=== PATIENT | female | born 2000 | race African-American/Black ===

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

== ENCOUNTER 2023-02-16 17:29 | Inpatient (IN) ==
[2023-02-16] MEDS ORDERED: cefTRIAXone 2 gm/50 mL D5W 2 GM/50 ML BAG IV ONE (18:17)
[2023-02-16] MEDS ORDERED: methylPREDNISolone SOD SUCC 125 mg 2 ML VIAL IV ONE (18:33)
[2023-02-16 18:58] LABS: ABS Basophils 0.1 10^3/uL (0.0-0.1); ABS Eosinophils 0.1 10^3/uL (0.0-0.5); ABS Lymphocytes 2.7 10^3/uL (1.0-4.8); ABS Monocytes 0.6 10^3/uL (0.0-0.9); ABS Neutrophils 4.3 10^3/uL (1.5-7.6); ABS Nucleated RBC 0.01 10^3/ul; Eosinophil % 0.8 %; Hematocrit 37.8 % (35-45); Hemoglobin 12.8 g/dL (11.5-14.3); Lymphocyte % 35.1 %; Mean Corpuscular Hemoglobin 30.7 pg (27-33); Mean Corpuscular Hgb Conc 33.8 g/dL (31-36); Mean Corpuscular Volume 90.9 fL (80-97); Mean Platelet Volume 8.1 fL (7.5-11.2); Nucleated Red Blood Cells % 0.1 %/100WBC (0.0-0.8); Platelet Count 305 10^3/uL (150-450); Red Blood Count 4.16 10^6/uL (3.63-4.92); Red Cell Distribution Width 12.9 % (12-17); White Blood Count 7.7 10^3/uL (3.8-11.8)
[2023-02-16] MEDS ORDERED: Ondansetron 4 mg VIAL 2 MG/ML 2 ml VIAL IV ONE (19:14)
[2023-02-16 19:26] LABS: ALT 16 U/L (7-52); AST 20 U/L (13-39); Albumin 4.2 g/dL (3.2-5.2); Albumin/Globulin Ratio 1.1 (1-3); Alkaline Phosphatase 62 U/L (35-149); Anion Gap 9 mmol/L (2-16); Blood Urea Nitrogen 11 mg/dL (6-24); CO2 Carbon Dioxide 24 mmol/L (22-32); Calcium 9.4 mg/dL (8.6-10.3); Chloride 104 mmol/L (101-111); Creatinine, Serum 0.67 mg/dL (0.51-0.95); Globulin 3.8 g/dL (2-4); Glucose 86 mg/dL (70-100); Potassium 3.4 mmol/L (3.5-5.0); Sodium 137 mmol/L (135-145); Total Bilirubin 0.6 mg/dL (0.2-1.0); eGFR CKD-EPI 125.1 (>60)
[2023-02-16] MEDS ORDERED: Acetaminophen IV 1 GM/100ML 1,000 MG/100 ML BAG IV ONE (19:30)
[2023-02-16] MEDS ORDERED: Ondansetron 4 mg VIAL 2 MG/ML 2 ml VIAL IV PRN (20:59)
[2023-02-16 21:50] LABS: HCG Pregnancy < 0.60 mIU/mL
[2023-02-17 04:54] LABS: ABS Lymphocytes 0.6 10^3/uL (1.0-4.8); ABS Monocytes 0.1 10^3/uL (0.0-0.9); ABS Neutrophils 6.2 10^3/uL (1.5-7.6); Hematocrit 37.5 % (35-45); Hemoglobin 12.4 g/dL (11.5-14.3); Lymphocyte % 8.6 %; Mean Corpuscular Hemoglobin 30.3 pg (27-33); Mean Corpuscular Hgb Conc 33.1 g/dL (31-36); Mean Corpuscular Volume 91.3 fL (80-97); Mean Platelet Volume 8.3 fL (7.5-11.2); Platelet Count 299 10^3/uL (150-450); Red Blood Count 4.11 10^6/uL (3.63-4.92); Red Cell Distribution Width 12.6 % (12-17); White Blood Count 6.9 10^3/uL (3.8-11.8)
[2023-02-17 05:18] LABS: Calcium 9.1 mg/dL (8.6-10.3); Creatinine, Serum 0.62 mg/dL (0.51-0.95); Magnesium 1.8 mg/dL (1.9-2.7); Potassium 4.3 mmol/L (3.5-5.0); eGFR CKD-EPI 127.5 (>60)
[2023-02-17 05:41] LABS: TSH Ultra Thyroid Stim Horm 0.25 mcIU/mL (0.34-5.60)
[2023-02-17] MEDS: cefTRIAXone 2 gm/50 mL D5W 2 GM/50 ML BAG IV SCH ×3 (06:37→18:33)
[2023-02-17] MEDS: Acetaminophen IV 1 GM/100ML 1,000 MG/100 ML BAG IV PRN (08:45)
[2023-02-17] MEDS: Magnesium Sulfate IV 1GM/100ML 1 GM/100 ML BAG IV ONE ×2 (08:46→09:56)
[2023-02-17 14:04] LABS: HIV 4th Generation Nonreactive (Nonreactive)
[2023-02-17 15:27] LABS: Body Fluid Source Cerebral Spinal
[2023-02-17 15:52] LABS: CSF Glucose 80 mg/dL (40-70)
[2023-02-17 15:58] LABS: CSF Tube # 4
[2023-02-17 16:06] LABS: CSF Body Fluid WBC 0 /mcL
[2023-02-17 17:08] LABS: Body Fluid Mono 10 %; Body Fluid Total Cells Counted 21
[2023-02-17 17:10] LABS: Body Fluid Appearance Clear
[2023-02-17 17:11] LABS: Body Fluid Color Colorless
[2023-02-17] MEDS ORDERED: Gadoteridol (CONTRAST) 279.3 MG/ML 10 ML IV ONE (22:28)
[2023-02-18] MEDS: cefTRIAXone 2 gm/50 mL D5W 2 GM/50 ML BAG IV SCH (05:08)
[2023-02-18 06:05] LABS: ABS Eosinophils 0.1 10^3/uL (0.0-0.5); ABS Lymphocytes 3.5 10^3/uL (1.0-4.8); ABS Monocytes 0.8 10^3/uL (0.0-0.9); ABS Neutrophils 4.9 10^3/uL (1.5-7.6); ABS Nucleated RBC 0.01 10^3/ul; Eosinophil % 0.9 %; Hematocrit 35.9 % (35-45); Hemoglobin 11.9 g/dL (11.5-14.3); Lymphocyte % 37.5 %; Mean Corpuscular Hemoglobin 30.2 pg (27-33); Mean Corpuscular Hgb Conc 33.1 g/dL (31-36); Mean Corpuscular Volume 91.2 fL (80-97); Mean Platelet Volume 8.5 fL (7.5-11.2); Nucleated Red Blood Cells % 0.1 %/100WBC (0.0-0.8); Platelet Count 286 10^3/uL (150-450); Red Blood Count 3.94 10^6/uL (3.63-4.92); Red Cell Distribution Width 12.8 % (12-17); White Blood Count 9.3 10^3/uL (3.8-11.8)
[2023-02-18 06:37] LABS: Calcium 8.8 mg/dL (8.6-10.3); Creatinine, Serum 0.71 mg/dL (0.51-0.95); Magnesium 1.9 mg/dL (1.9-2.7); Potassium 3.5 mmol/L (3.5-5.0); eGFR CKD-EPI 121.7 (>60)
[2023-02-18] MEDS ORDERED: Morphine 2 MG/ML SYRINGE IV PRN (07:54)
[2023-02-18] MEDS ORDERED: Influenza vaccine *QUAD* *2023-24* 0.5 ML SYRINGE IM ONE (09:00)
[2023-02-18 10:22] LABS: High Sensitivity Troponin 1 Hr 8 pg/mL (<15)
[2023-02-18] MEDS ORDERED: Immune Globulin IV Order (CPOE ENTRY PROTOCOL) IV SCH (12:00)
[2023-02-18] MEDS ORDERED: Rocuronium 50 mg VIAL 10 mg/ml 5 ml VIAL (50 mg) ONE (13:06)
[2023-02-18] MEDS ORDERED: Succinylcholine 200 mg VIAL 20 mg/ml 10 ml VIAL (200 mg) ONE (13:06)
[2023-02-18] MEDS ORDERED: Propofol 10 mg/ml 100 ML BTL 1,000 MG/100 ML BTL ONE (13:37)
[2023-02-18] MEDS ORDERED: Lactated Ringers 1000 ml BAG 500 ML IV ONE (14:02)
[2023-02-18] MEDS ORDERED: Albuterol/Ipratropium NEB.SOL (2.5/0.5 MG) 3 ML NEB.SOLN ONE (14:03)
[2023-02-18] MEDS ORDERED: Albuterol/Ipratropium NEB.SOL (2.5/0.5 MG) 3 ML NEB.SOLN INH ONE (14:09)
[2023-02-18] MEDS ORDERED: Albuterol/Ipratropium NEB.SOL (2.5/0.5 MG) 3 ML NEB.SOLN INH PRN (14:37)
[2023-02-18] MEDS ORDERED: Midazolam 10 mg/10 ml VIAL 1 mg/ml 10 ml VIAL (10 mg) ONE ×2 (14:40→15:20)
[2023-02-18] MEDS: Propofol 10 mg/ml 100 ML BTL 1,000 MG/100 ML BTL IV SCH ×3 (14:43→23:51)
[2023-02-18] MEDS ORDERED: Midazolam 10 mg/10 ml VIAL 1 mg/ml 10 ml VIAL (10 mg) IV SLOW PU ONE (14:52)
[2023-02-18] MEDS ORDERED: Midazolam PREMIXBAG 1 MG/ML NS 100 ML IV ONE (14:52)
[2023-02-18] MEDS ORDERED: Midazolam 5 mg/5 ml VIAL 1 mg/ml 5 ml VIAL (5 mg) IV SLOW PU ONE (14:53)
[2023-02-18] MEDS: Immune Glob 10%-20GM GAMMAGLIQ 20 GM, Immune Glob 10%-5 GM GAMMAGLIQ 5 GM in Premix IV ... IV SCH (14:59)
[2023-02-18] MEDS: fentaNYL INFUSION 50 mcg/mL VL 2,500 MCG/50 ML VIAL IV SCH (15:38)
[2023-02-18] MEDS: Chlorhexidine MOUTHWASH 0.12% 15 ML UDC SWISH SPIT SCH ×4 (15:44→23:52)
[2023-02-18] MEDS: Midazolam PREMIXBAG 1 MG/ML NS 100 ML IV SCH ×2 (15:46→22:41)
[2023-02-18] MEDS: Pantoprazole VIAL 40 MG VIAL IV SCH (15:52)
[2023-02-18] MEDS: Enoxaparin 40 MG/0.4 ML SYR SUBCUT SCH (15:53)
[2023-02-18 16:33] LABS: Urine Benzodiazepine Screen Presumptive Positive (None Detect); Urine Buprenorphine Screen None Detected (None Detect); Urine Cannabinoids Screen Presumptive Positive (None Detect); Urine Fentanyl Screen Presumptive Positive (None Detect); Urine Hydrocodone Screen None Detected (None Detect); Urine Opiates Screen Presumptive Positive (None Detect)
[2023-02-18] MEDS: cefTRIAXone 1 gm/50 mL D5W 1 GM/50 ML BAG IV SCH (18:11)
[2023-02-18] MEDS ORDERED: Iohexol 300 (CONTRAST) 10 ML SDV IV ONE (19:04)
[2023-02-19] MEDS ORDERED: Gadoteridol (CONTRAST) 279.3 MG/ML 10 ML IV ONE (00:48)
[2023-02-19] MEDS: Chlorhexidine MOUTHWASH 0.12% 15 ML UDC SWISH SPIT SCH ×6 (02:01→20:50)
[2023-02-19] MEDS: fentaNYL INFUSION 50 mcg/mL VL 2,500 MCG/50 ML VIAL IV SCH (04:50)
[2023-02-19 04:51] LABS: ABS Eosinophils 0.1 10^3/uL (0.0-0.5); ABS Lymphocytes 1.5 10^3/uL (1.0-4.8); ABS Monocytes 0.6 10^3/uL (0.0-0.9); ABS Neutrophils 4.5 10^3/uL (1.5-7.6); ABS Nucleated RBC 0.01 10^3/ul; Eosinophil % 0.9 %; Hemoglobin 11.4 g/dL (11.5-14.3); Lymphocyte % 21.9 %; Mean Corpuscular Hemoglobin 30.9 pg (27-33); Mean Corpuscular Hgb Conc 33.6 g/dL (31-36); Mean Corpuscular Volume 91.8 fL (80-97); Nucleated Red Blood Cells % 0.1 %/100WBC (0.0-0.8); Platelet Count 257 10^3/uL (150-450); Red Cell Distribution Width 12.5 % (12-17); White Blood Count 6.7 10^3/uL (3.8-11.8)
[2023-02-19 05:09] LABS: Calcium 8.7 mg/dL (8.6-10.3); Creatinine, Serum 0.63 mg/dL (0.51-0.95); Magnesium 1.8 mg/dL (1.9-2.7); Phosphorus 4.5 mg/dL (2.5-5.0); Potassium 3.6 mmol/L (3.5-5.0)
[2023-02-19] MEDS ORDERED: Potassium Chloride LIQUID 20 MEQ/15 ML LIQUID PO ONE (06:37)
[2023-02-19] MEDS ORDERED: Magnesium Sulfate 2 gm BAG 2 GM/50 ML BAG IVPB ONE (06:37)
[2023-02-19] MEDS: Propofol 10 mg/ml 100 ML BTL 1,000 MG/100 ML BTL IV SCH ×4 (06:39→19:40)
[2023-02-19] MEDS: Midazolam PREMIXBAG 1 MG/ML NS 100 ML IV SCH (08:19)
[2023-02-19] MEDS: Immune Glob 10%-20GM GAMMAGLIQ 20 GM, Immune Glob 10%-5 GM GAMMAGLIQ 5 GM in Premix IV ... IV SCH (10:23)
[2023-02-19 14:01] LABS: Folate 11.19 ng/mL (5.90-24.80)
[2023-02-19] MEDS: Enoxaparin 40 MG/0.4 ML SYR SUBCUT SCH (14:43)
[2023-02-19] MEDS: Pantoprazole VIAL 40 MG VIAL IV SCH (14:43)
[2023-02-19] MEDS: cefTRIAXone 1 gm/50 mL D5W 1 GM/50 ML BAG IV SCH (17:36)
[2023-02-19] MEDS ORDERED: Ibuprofen ADULT LIQ 600 MG/30 ML UDC PO PRN (20:58)
[2023-02-19] MEDS: Acetaminophen IV 1 GM/100ML 1,000 MG/100 ML BAG IV PRN (21:26)
[2023-02-19 21:44] LABS: HSV 1 PCR, CSF Negative (Negative); HSV 2 PCR, CSF Negative (Negative)
[2023-02-20] MEDS: Chlorhexidine MOUTHWASH 0.12% 15 ML UDC SWISH SPIT SCH ×6 (01:00→20:24)
[2023-02-20] MEDS: Propofol 10 mg/ml 100 ML BTL 1,000 MG/100 ML BTL IV SCH ×4 (02:08→22:42)
[2023-02-20] MEDS: Midazolam PREMIXBAG 1 MG/ML NS 100 ML IV SCH (04:01)
[2023-02-20 04:53] LABS: ABS Eosinophils 0.1 10^3/uL (0.0-0.5); ABS Lymphocytes 1.6 10^3/uL (1.0-4.8); ABS Monocytes 0.7 10^3/uL (0.0-0.9); ABS Neutrophils 3.2 10^3/uL (1.5-7.6); ABS Nucleated RBC 0.02 10^3/ul; Eosinophil % 1.4 %; Hematocrit 33.5 % (35-45); Hemoglobin 11.2 g/dL (11.5-14.3); Mean Corpuscular Hemoglobin 30.7 pg (27-33); Mean Corpuscular Hgb Conc 33.4 g/dL (31-36); Mean Corpuscular Volume 91.9 fL (80-97); Mean Platelet Volume 8.4 fL (7.5-11.2); Nucleated Red Blood Cells % 0.4 %/100WBC (0.0-0.8); Platelet Count 257 10^3/uL (150-450); Red Blood Count 3.64 10^6/uL (3.63-4.92); Red Cell Distribution Width 12.6 % (12-17); White Blood Count 5.6 10^3/uL (3.8-11.8)
[2023-02-20 05:09] LABS: Calcium 8.9 mg/dL (8.6-10.3); Creatinine, Serum 0.62 mg/dL (0.51-0.95); Magnesium 2.2 mg/dL (1.9-2.7); Phosphorus 4.3 mg/dL (2.5-5.0); eGFR CKD-EPI 127.5 (>60)
[2023-02-20] MEDS: Immune Glob 10%-20GM GAMMAGLIQ 20 GM, Immune Glob 10%-5 GM GAMMAGLIQ 5 GM in Premix IV ... IV SCH (09:54)
[2023-02-20] MEDS ORDERED: Magnesium Hydroxide LIQ 30 ML UDC PO PRN (09:58)
[2023-02-20] MEDS ORDERED: Polyethylene Glycol 3350 17 GM PACKET PO SCH (10:00)
[2023-02-20] MEDS ORDERED: Magnesium Hydroxide LIQ 30 ML UDC PO SCH (10:00)
[2023-02-20 11:32] LABS: Free T4 0.86 ng/dL (0.61-1.12)
[2023-02-20 12:00] LABS: Albumin, CSF 22.7 mg/dL (<=27.0); Albumin, S 4000 mg/dL; IgG Index, CSF 0.62 (<=0.85); IgG, CSF 5.8 mg/dL (<=8.1); IgG, S 1670 mg/dL (767 - 1590); IgG/Albumin, CSF 0.26 (<=0.21); IgG/Albumin, S 0.42 (<=0.40); Synthesis Rate, CSF 5.38 mg/24 h (<=12)
[2023-02-20] MEDS ORDERED: Magnesium Hydroxide LIQ 30 ML UDC NG TUBE PRN (12:19)
[2023-02-20] MEDS ORDERED: Zosyn per Pharmacy NOTE FOLLOW UP SCH (13:00)
[2023-02-20] MEDS ORDERED: Piperacillin/Tazobac 3.375 BAG 3.375 GM/100 ML BAG IV ONE (13:30)
[2023-02-20 14:21] LABS: CSF VDRL Negative (Negative)
[2023-02-20] MEDS: Pantoprazole VIAL 40 MG VIAL IV SCH (15:00)
[2023-02-20] MEDS: Enoxaparin 40 MG/0.4 ML SYR SUBCUT SCH (15:00)
[2023-02-20 15:07] LABS: CSF Oligoclonal Bands 0 bands; Oligoclonal Proteins Interpret 0 bands (<2); Serum Oligoclonal Bands 0 bands
[2023-02-20] MEDS: Acetaminophen IV 1 GM/100ML 1,000 MG/100 ML BAG IV PRN ×2 (16:30→22:26)
[2023-02-20 16:55] LABS: B. burgdorferi PCR Negative (Negative); B. garinii/B. afzellii PCR Negative (Negative); Lyme Disease Source CSF
[2023-02-20] MEDS: ZOSYN 3.375 GM Q8H per EXTENDED INFUSION IV SCH (18:37)
[2023-02-20] MEDS: Magnesium Hydroxide LIQ 30 ML UDC NG TUBE SCH (20:24)
[2023-02-20] MEDS: Senna TAB 8.6 mg TAB NG TUBE SCH (20:24)
[2023-02-21] MEDS ORDERED: Lactated Ringers 1000 ml BAG 1,000 ML IV ONE (00:57)
[2023-02-21] MEDS: Chlorhexidine MOUTHWASH 0.12% 15 ML UDC SWISH SPIT SCH ×6 (01:01→21:02)
[2023-02-21] MEDS: ZOSYN 3.375 GM Q8H per EXTENDED INFUSION IV SCH ×3 (01:36→18:22)
[2023-02-21 04:56] LABS: ABS Eosinophils 0.1 10^3/uL (0.0-0.5); ABS Lymphocytes 1.3 10^3/uL (1.0-4.8); ABS Monocytes 0.7 10^3/uL (0.0-0.9); ABS Neutrophils 2.4 10^3/uL (1.5-7.6); ABS Nucleated RBC 0.01 10^3/ul; Eosinophil % 2.6 %; Hematocrit 28.2 % (35-45); Hemoglobin 9.6 g/dL (11.5-14.3); Lymphocyte % 29.1 %; Mean Corpuscular Hemoglobin 31.1 pg (27-33); Mean Corpuscular Volume 91.5 fL (80-97); Mean Platelet Volume 8.4 fL (7.5-11.2); Nucleated Red Blood Cells % 0.1 %/100WBC (0.0-0.8); Platelet Count 212 10^3/uL (150-450); Red Blood Count 3.09 10^6/uL (3.63-4.92); Red Cell Distribution Width 12.7 % (12-17); White Blood Count 4.6 10^3/uL (3.8-11.8)
[2023-02-21 05:06] LABS: Creatinine, Serum 0.73 mg/dL (0.51-0.95); Magnesium 1.8 mg/dL (1.9-2.7); Phosphorus 2.8 mg/dL (2.5-5.0); Potassium 3.4 mmol/L (3.5-5.0); eGFR CKD-EPI 117.7 (>60)
[2023-02-21] MEDS: Midazolam PREMIXBAG 1 MG/ML NS 100 ML IV SCH (05:22)
[2023-02-21] MEDS ORDERED: KCL 20 MEQ/100 ML IVPREMIX 20 MEQ/100 ML BAG IV ONE (06:39)
[2023-02-21] MEDS ORDERED: Magnesium Sulfate 2 gm BAG 2 GM/50 ML BAG IVPB ONE (06:40)
[2023-02-21] MEDS ORDERED: Potassium Chloride LIQUID 20 MEQ/15 ML LIQUID NG TUBE ONE (08:08)
[2023-02-21] MEDS: fentaNYL INFUSION 50 mcg/mL VL 2,500 MCG/50 ML VIAL IV SCH (08:51)
[2023-02-21] MEDS: Propofol 10 mg/ml 100 ML BTL 1,000 MG/100 ML BTL IV SCH ×2 (09:06→19:56)
[2023-02-21] MEDS: Albuterol/Ipratropium NEB.SOL (2.5/0.5 MG) 3 ML NEB.SOLN INH PRN (09:21)
[2023-02-21] MEDS: Immune Glob 10%-20GM GAMMAGLIQ 20 GM, Immune Glob 10%-5 GM GAMMAGLIQ 5 GM in Premix IV ... IV SCH (11:25)
[2023-02-21] MEDS: Magnesium Hydroxide LIQ 30 ML UDC NG TUBE SCH ×2 (12:05→21:02)
[2023-02-21] MEDS: Polyethylene Glycol 3350 17 GM PACKET NG TUBE SCH (12:06)
[2023-02-21] MEDS: Enoxaparin 40 MG/0.4 ML SYR SUBCUT SCH (14:22)
[2023-02-21] MEDS: Pantoprazole VIAL 40 MG VIAL IV SCH (14:22)
[2023-02-21 14:46] LABS: CSF West Nile Virus IgG Ab Negative (Negative); CSF West Nile Virus IgM Ab Negative (Negative)
[2023-02-21 16:53] LABS: Pyridoxal 5-Phosphate (PLP), P 7 mcg/L (5-50)
[2023-02-21] MEDS: Midazolam 2 mg/2 ml VIAL 1 mg/ml 2 ml VIAL (2 mg) IV SLOW PU PRN (21:03)
[2023-02-21] MEDS: Senna TAB 8.6 mg TAB NG TUBE SCH (21:03)
[2023-02-22] MEDS: Midazolam 2 mg/2 ml VIAL 1 mg/ml 2 ml VIAL (2 mg) IV SLOW PU PRN (02:25)
[2023-02-22] MEDS: ZOSYN 3.375 GM Q8H per EXTENDED INFUSION IV SCH ×4 (02:57→22:23)
[2023-02-22] MEDS: Chlorhexidine MOUTHWASH 0.12% 15 ML UDC SWISH SPIT SCH ×6 (03:00→22:08)
[2023-02-22] MEDS: Propofol 10 mg/ml 100 ML BTL 1,000 MG/100 ML BTL IV SCH ×3 (03:13→18:33)
[2023-02-22 04:20] LABS: ABS Eosinophils 0.1 10^3/uL (0.0-0.5); ABS Lymphocytes 0.6 10^3/uL (1.0-4.8); ABS Monocytes 0.6 10^3/uL (0.0-0.9); ABS Neutrophils 4.3 10^3/uL (1.5-7.6); ABS Nucleated RBC 0.01 10^3/ul; Eosinophil % 1.5 %; Hematocrit 28.5 % (35-45); Hemoglobin 9.7 g/dL (11.5-14.3); Lymphocyte % 10.6 %; Mean Corpuscular Hemoglobin 31.1 pg (27-33); Mean Corpuscular Hgb Conc 34.2 g/dL (31-36); Mean Corpuscular Volume 91.2 fL (80-97); Nucleated Red Blood Cells % 0.1 %/100WBC (0.0-0.8); Platelet Count 229 10^3/uL (150-450); Red Blood Count 3.12 10^6/uL (3.63-4.92); Red Cell Distribution Width 12.5 % (12-17); White Blood Count 5.6 10^3/uL (3.8-11.8)
[2023-02-22 04:42] LABS: Calcium 8.1 mg/dL (8.6-10.3); Creatinine, Serum 0.58 mg/dL (0.51-0.95); Potassium 3.7 mmol/L (3.5-5.0); eGFR CKD-EPI 129.5 (>60)
[2023-02-22] MEDS ORDERED: Potassium Chloride LIQUID 20 MEQ/15 ML LIQUID NG TUBE ONE (08:18)
[2023-02-22] MEDS: Magnesium Hydroxide LIQ 30 ML UDC NG TUBE SCH ×2 (09:13→20:41)
[2023-02-22] MEDS: Polyethylene Glycol 3350 17 GM PACKET NG TUBE SCH (09:14)
[2023-02-22] MEDS ORDERED: Immune Glob 10%-20GM GAMMAGLIQ 20 GM, Immune Glob 10%-5 GM GAMMAGLIQ 5 GM in Premix IV ... IV ONE (10:00)
[2023-02-22] MEDS: Immune Glob 10%-20GM GAMMAGLIQ 20 GM, Immune Glob 10%-5 GM GAMMAGLIQ 5 GM in Premix IV ... IV SCH (10:39)
[2023-02-22] MEDS: fentaNYL INFUSION 50 mcg/mL VL 2,500 MCG/50 ML VIAL IV SCH ×2 (10:56→16:44)
[2023-02-22] MEDS ORDERED: Ketamine HCL 50 mg/ml 10 ml VIAL (500 MG) IV ONE (12:57)
[2023-02-22] MEDS: Enoxaparin 40 MG/0.4 ML SYR SUBCUT SCH (13:56)
[2023-02-22] MEDS: Pantoprazole VIAL 40 MG VIAL IV SCH (13:57)
[2023-02-22] MEDS: Ondansetron 4 mg VIAL 2 MG/ML 2 ml VIAL IV PRN (16:00)
[2023-02-22] MEDS ORDERED: Ketamine INFUS(restricted) NS 500 MG/500 ML BAG IV SCH (16:00)
[2023-02-22] MEDS: Alteplase (CATHFLO) 2 MG VIAL IV ONE ×2 (16:46→17:16)
[2023-02-22] MEDS: Senna TAB 8.6 mg TAB NG TUBE SCH (20:41)
[2023-02-22] MEDS: Atropine 1% (ORAL/SL) 15 ML BTL SL PRN (20:47)
[2023-02-23] MEDS: Propofol 10 mg/ml 100 ML BTL 1,000 MG/100 ML BTL IV SCH ×4 (00:12→19:38)
[2023-02-23] MEDS: Chlorhexidine MOUTHWASH 0.12% 15 ML UDC SWISH SPIT SCH ×6 (02:14→20:21)
[2023-02-23] MEDS: Atropine 1% (ORAL/SL) 15 ML BTL SL PRN ×2 (03:14→19:54)
[2023-02-23 04:19] LABS: ABS Eosinophils 0.2 10^3/uL (0.0-0.5); ABS Lymphocytes 1.2 10^3/uL (1.0-4.8); ABS Monocytes 0.8 10^3/uL (0.0-0.9); ABS Neutrophils 2.3 10^3/uL (1.5-7.6); ABS Nucleated RBC 0.01 10^3/ul; Hematocrit 27.1 % (35-45); Hemoglobin 9.1 g/dL (11.5-14.3); Lymphocyte % 25.9 %; Mean Corpuscular Hemoglobin 30.6 pg (27-33); Mean Corpuscular Hgb Conc 33.7 g/dL (31-36); Mean Corpuscular Volume 90.6 fL (80-97); Mean Platelet Volume 7.7 fL (7.5-11.2); Nucleated Red Blood Cells % 0.1 %/100WBC (0.0-0.8); Platelet Count 208 10^3/uL (150-450); Red Blood Count 2.99 10^6/uL (3.63-4.92); Red Cell Distribution Width 12.8 % (12-17); White Blood Count 4.5 10^3/uL (3.8-11.8)
[2023-02-23 04:41] LABS: Creatinine, Serum 0.68 mg/dL (0.51-0.95); Potassium 3.2 mmol/L (3.5-5.0); eGFR CKD-EPI 124.6 (>60)
[2023-02-23] MEDS: ZOSYN 3.375 GM Q8H per EXTENDED INFUSION IV SCH ×2 (06:05→14:18)
[2023-02-23] MEDS ORDERED: Potassium Chloride LIQUID 20 MEQ/15 ML LIQUID PO ONE (06:55)
[2023-02-23] MEDS: KCL 20 MEQ/100 ML IVPREMIX 20 MEQ/100 ML BAG IV SCH ×2 (07:38→09:45)
[2023-02-23] MEDS: Polyethylene Glycol 3350 17 GM PACKET NG TUBE SCH (08:56)
[2023-02-23] MEDS: Magnesium Hydroxide LIQ 30 ML UDC NG TUBE SCH ×2 (08:56→19:54)
[2023-02-23] MEDS ORDERED: Iohexol 350 (CONTRAST) 500 ML MDV IV ONE (12:14)
[2023-02-23] MEDS: Midazolam 2 mg/2 ml VIAL 1 mg/ml 2 ml VIAL (2 mg) IV SLOW PU PRN (13:55)
[2023-02-23] MEDS: Enoxaparin 40 MG/0.4 ML SYR SUBCUT SCH (14:18)
[2023-02-23] MEDS: Pantoprazole VIAL 40 MG VIAL IV SCH (14:18)
[2023-02-23] MEDS: methylPREDNISolone SOD SUCC 40 mg/ml 1 ml VIAL IV SCH (18:19)
[2023-02-23] MEDS: Famotidine IV 10 MG/ML 2 ml VIAL (20 mg) IV SLOW PU SCH (19:54)
[2023-02-23] MEDS: Senna TAB 8.6 mg TAB NG TUBE SCH (19:54)
[2023-02-23] MEDS: fentaNYL INFUSION 50 mcg/mL VL 2,500 MCG/50 ML VIAL IV SCH (20:31)
[2023-02-24] MEDS: methylPREDNISolone SOD SUCC 40 mg/ml 1 ml VIAL IV SCH ×4 (01:14→19:04)
[2023-02-24] MEDS: Chlorhexidine MOUTHWASH 0.12% 15 ML UDC SWISH SPIT SCH ×3 (01:15→08:47)
[2023-02-24] MEDS: Propofol 10 mg/ml 100 ML BTL 1,000 MG/100 ML BTL IV SCH (02:03)
[2023-02-24 03:47] LABS: ABS Lymphocytes 0.2 10^3/uL (1.0-4.8); ABS Monocytes 0.1 10^3/uL (0.0-0.9); ABS Neutrophils 3.1 10^3/uL (1.5-7.6); Eosinophil % 0.2 %; Hematocrit 28.3 % (35-45); Hemoglobin 9.6 g/dL (11.5-14.3); Mean Corpuscular Hemoglobin 30.6 pg (27-33); Mean Corpuscular Hgb Conc 33.9 g/dL (31-36); Mean Corpuscular Volume 90.2 fL (80-97); Platelet Count 247 10^3/uL (150-450); Red Blood Count 3.14 10^6/uL (3.63-4.92); Red Cell Distribution Width 12.8 % (12-17); White Blood Count 3.4 10^3/uL (3.8-11.8)
[2023-02-24 04:09] LABS: Calcium 8.5 mg/dL (8.6-10.3); Creatinine, Serum 0.52 mg/dL (0.51-0.95); Magnesium 1.8 mg/dL (1.9-2.7); Potassium 4.1 mmol/L (3.5-5.0)
[2023-02-24] MEDS: Ondansetron 4 mg VIAL 2 MG/ML 2 ml VIAL IV PRN (04:37)
[2023-02-24] MEDS: Midazolam 2 mg/2 ml VIAL 1 mg/ml 2 ml VIAL (2 mg) IV SLOW PU PRN (04:37)
[2023-02-24] MEDS: Atropine 1% (ORAL/SL) 15 ML BTL SL PRN (04:44)
[2023-02-24] MEDS ORDERED: Acetaminophen IV 1 GM/100ML 1,000 MG/100 ML BAG IV ONE (05:30)
[2023-02-24] MEDS ORDERED: Midazolam 2 mg/2 ml VIAL 1 mg/ml 2 ml VIAL (2 mg) IV SLOW PU ONE (08:07)
[2023-02-24] MEDS: Polyethylene Glycol 3350 17 GM PACKET NG TUBE SCH (08:30)
[2023-02-24] MEDS: Magnesium Hydroxide LIQ 30 ML UDC NG TUBE SCH ×2 (08:30→19:09)
[2023-02-24] MEDS: Famotidine IV 10 MG/ML 2 ml VIAL (20 mg) IV SLOW PU SCH (08:47)
[2023-02-24] MEDS: Enoxaparin 40 MG/0.4 ML SYR SUBCUT SCH (15:32)
[2023-02-24 17:14] LABS: Lyme CNS IgG Ab Index Interp Negative; Lyme CNS IgG Ab Index Value 0.9 (0.6 - 1.2)
[2023-02-24] MEDS: Senna TAB 8.6 mg TAB NG TUBE SCH (19:09)
[2023-02-24] MEDS: Albuterol/Ipratropium NEB.SOL (2.5/0.5 MG) 3 ML NEB.SOLN INH PRN (19:28)
[2023-02-25] MEDS: methylPREDNISolone SOD SUCC 40 mg/ml 1 ml VIAL IV SCH ×3 (00:21→12:31)
[2023-02-25 04:19] LABS: Hematocrit 29.2 % (35-45); Hemoglobin 9.8 g/dL (11.5-14.3); Mean Corpuscular Hemoglobin 30.5 pg (27-33); Mean Corpuscular Hgb Conc 33.5 g/dL (31-36); Mean Corpuscular Volume 91.1 fL (80-97); Mean Platelet Volume 8.6 fL (7.5-11.2); Platelet Count 229 10^3/uL (150-450); Red Blood Count 3.21 10^6/uL (3.63-4.92); Red Cell Distribution Width 12.6 % (12-17); White Blood Count 23.5 10^3/uL (3.8-11.8)
[2023-02-25 04:41] LABS: Calcium 8.9 mg/dL (8.6-10.3); Creatinine, Serum 0.45 mg/dL (0.51-0.95); eGFR CKD-EPI 137.7 (>60)
[2023-02-25 05:39] LABS: ABS Lymphocytes 0.6 10^3/uL (1.0-4.8); ABS Monocytes 0.6 10^3/uL (0.0-0.9); ABS Neutrophils 22.2 10^3/uL (1.5-7.6); Lymphocyte % 2.5 %
[2023-02-25] MEDS: Polyethylene Glycol 3350 17 GM PACKET NG TUBE SCH (08:47)
[2023-02-25] MEDS: Magnesium Hydroxide LIQ 30 ML UDC NG TUBE SCH (08:47)
[2023-02-25] MEDS ORDERED: Benzocaine/Menthol LOZ MT PRN (11:31)
[2023-02-25] MEDS: Albuterol/Ipratropium NEB.SOL (2.5/0.5 MG) 3 ML NEB.SOLN INH PRN (13:57)
[2023-02-25 14:13] VITALS: BP 114/83
[2023-02-25] MEDS: Enoxaparin 40 MG/0.4 ML SYR SUBCUT SCH (14:37)
== END 2023-02-25 15:30 | disposition home or self-care (01) | DRG 49 ==
LOC: ED 17:29 → SUATTDRO 20:59 → EDHOLD 20:59 → MEDTELE 02-17 11:37 → ICU 02-18 13:01
PROVIDERS: ADMIT Internal Medicine; ATTEND Internal Medicine Pulmonary Disease